=== PATIENT | male | born 1980 | race Caucasian/White ===

== ENCOUNTER → 2018-05-12 | Outpatient (CLI) | payer BC | LOC: RAD 15:38 | PROVIDERS: ATTEND Family Medicine | DX: I10 Essential (primary) hypertension (principal) | CPT/HCPCS: 93306 ==

== ENCOUNTER 2021-03-26 20:00 | Emergency (ER) | payer BC ==
[~2021-03-26] VITALS: Ht 177.8 cm; Wt 113.4 kg
[2021-03-26] MEDS ORDERED: SODIUM CHLORIDE 0.9% 1000ML 1,000 ML IV ONE ×2 (20:45→21:30)
[2021-03-26 20:47] LABS: BASOPHILS % 0.4 % (0.0-1.0); EOSINOPHILS % 0.4 % (0.0-6.0); HEMATOCRIT 39.8 % (38.2-49.6); LYMPHOCYTES # (AUTO) 0.7 (1.0-3.2); LYMPHOCYTES % 15.9 % (18.0-39.1); MEAN CORPUSCULAR HEMOGLOBIN 28.3 pg (28-32); MEAN CORPUSCULAR HGB CONC 32.7 g/dL (31-35); MEAN CORPUSCULAR VOLUME 86.7 fL (81-99); MONOCYTES # (AUTO) 0.2 (0.2-0.8); MONOCYTES % 4.8 % (4.4-11.3); NEUTROPHILS # (AUTO) 3.5 (2.1-6.9); NEUTROPHILS % 77.6 % (38.7-80.0); PLATELET COUNT 111 x10e3/uL (140-360); RED BLOOD COUNT 4.59 x10e6/uL (4.3-5.7); RED CELL DISTRIBUTION WIDTH 13.6 % (11.7-14.4)
[2021-03-26 21:06] LABS: ALBUMIN/GLOBULIN RATIO 0.6 (0.8-2.0); CALCIUM 8.4 mg/dL (8.4-10.2); CREATININE, SERUM 1.98 mg/dL (0.72-1.25)
[2021-03-26 21:12] LABS: CREATINE KINASE MB 1.6 ng/mL (0-5.0)
[2021-03-26] MEDS ORDERED: POTASSIUM CHLORIDE 20 MEQ TAB CR PO STA (21:15)
[2021-03-26] MEDS ORDERED: DONNATAL/LIDOCAINE/MAALOX 30 ML SUSP PO ONE (22:15)
[2021-03-26] MEDS ORDERED: BELLADONNA ALK/PHENOBARBITAL 5 ML UDC ONE (22:18)
[2021-03-26] MEDS ORDERED: LIDOCAINE VISC 2% SOLN 15 ML UDC ONE (22:18)
[2021-03-26] MEDS ORDERED: MAGNESIUM/ALUMINUM/SIMETHICONE 30 ML UDC ONE (22:18)
[2021-03-26] MEDS ORDERED: DIATRIZOATE MEGL/DIATRIZOA SOD 30 ML BTL PO ONE (22:28)
[2021-03-26 22:42] LABS: CLARITY,URINE CLOUDY (CLEAR); COLOR,URINE AMBER (YELLOW); KETONES,URINE TRACE (NEGATIVE); LEUKOCYTE ESTERASE ,URINE NEGATIVE (NEGATIVE); NITRITE,URINE NEGATIVE (NEGATIVE); PROTEIN,URINE DIPSTICK 1+ (NEGATIVE); URINE UROBILINOGEN 1 mg/dL (0.2 - 1); WBC,URINE (MAN) >50 /HPF (0-5)
[2021-03-26 22:43] LABS: BACTERIA,URINE MANY /HPF; EPITHELIAL CELLS,URINE FEW /LPF
[2021-03-26] MEDS ORDERED: SODIUM CHLORIDE 0.9% 1000ML 1,000 ML IV SCH (23:00)
[2021-03-26] MEDS ORDERED: CEFTRIAXONE 1 GM in SODIUM CHLORIDE 0.9% 50ML 50 ML IV ONE (23:00)
[2021-03-27] MEDS ORDERED: DONNATAL/LIDOCAINE/MAALOX 30 ML SUSP PO ONE (09:00)
== END 2021-03-27 07:24 | disposition home or self-care (01) ==
LOC: ER 20:35
DX: E86.0 Dehydration (principal); N39.0 Urinary tract infection, site not specified; R50.9 Fever, unspecified; R79.1 Abnormal coagulation profile
CPT/HCPCS: 36415; 71045; 74176; 78597; 80053; 81001; 82550; 82553; 83690; 84484; 85025; 85379; 99284; C9113; J7030; U0002